=== PATIENT | female | born 1950 | race Caucasian/White ===

== ENCOUNTER 2021-05-01 14:33 | Outpatient (CLI) | payer MEDICARE, OTHER | END 2021-05-01 14:34 | disposition critical access hospital (66) | LOC: EMS 14:33 | DX: Z04.3 Encounter for examination and observation following other accident (principal); R25.2 Cramp and spasm | CPT/HCPCS: A0425; A0427 ==

== ENCOUNTER 2021-05-01 15:01 | Emergency (ER) | payer MEDICARE, OTHER ==
[2021-05-01] MEDS: MORPHINE 2 MG/ML CARPUJECT IM STA (15:40)
--- NOTE | 2021-05-01 15:40 | ED Physician Documentation ---
History of Present Illness - Stated complaint Stated Complaint: GLF - Chief complaint Chief Complaint: Trauma Ext - History obtained from History obtained from: Patient, EMS - History of Present Illness Timing: Today Pain level max: 8 Pain level now: 6 - Additonal information Additional information: Patient is a 70-year-old female who states that she was walking down a driveway today when she slipped in the mud. She feels like her knee went one way and her body went the other way. Pain with movements. Better with rest. 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 She was given morphine by EMS. Pain currently improved. No neck or back pain. No head injury. No loss of consciousness. Review of Systems Ten Systems: 10 systems reviewed and negative Constitutional: denies: Fever, Chills Ears: denies: Ear pain Nose: denies: Rhinorrhea / runny nose, Congestion Respiratory: denies: Cough GI: denies: Nausea, Vomiting, Diarrhea Skin: denies: Rash Musculoskeletal: denies: Neck pain, Extremity pain Neurologic: denies: Headache PD PAST MEDICAL HISTORY - Past Medical History Past Medical History: Yes Psych: Depression - Past Surgical History Past Surgical History: Yes Ortho: Knee replacement - Allergies Allergies/Adverse Reactions: Allergies Allergy/AdvReac Type Severity Reaction Status Date / Time No Known Drug Allergies Allergy Verified 05/01/21 15:13 PD ED PE NORMAL - Vitals Vital signs reviewed: Yes - General General: Alert and oriented X 3, No acute distress - HEENT HEENT: Moist mucous membranes - Neck Neck: Supple, no meningeal sign - Cardiac Cardiac: RRR - Respiratory Respiratory: No respiratory distress, Clear bilaterally - Abdomen Abdomen: Soft, Non tender, Non distended - Derm Derm: Warm and dry - Extremities Extremities: Other (TTP over the L knee, limited exam and ROM 2/2 pain. NVI.) - Neuro Neuro: Alert and oriented X 3 - Psych Psych: Normal mood, Normal affect Results - Vitals Vitals: Vital Signs - 24 hr 05/01/21 05/01/21 05/01/21 15:07 17:12 19:00 Temperature 36.4 C L 36.5 C Heart Rate 80 90 89 Respiratory 18 18 16 Rate Blood Pressure 154/83 H 113/79 114/75 O2 Saturation 100 96 96 Oxygen O2 Source Room air - Labs Labs: Laboratory Tests 05/01/21 05/01/2105/01/21 16:40 17:35 17:35 WBC 11.8 H RBC 5.24 Hgb 15.7 Hct 47.4 H MCV 90.5 MCH 30.0 MCHC 33.1 RDW 12.6 Plt Count 278 MPV 10.1 Neut # (Auto) 10.1 H Lymph # (Auto) 1.2 L Baker # (Auto) 0.4 Eos # (Auto) 0.0 Baso # (Auto) 0.1 Absolute Nucleated RBC 0.00 Nucleated RBC % 0.0 PT 11.5 INR 1.0 APTT 29.1 Sodium Potassium Chloride Carbon Dioxide Anion Gap BUN Creatinine Estimated GFR (MDRD) Glucose Calcium Total Bilirubin AST ALT Alkaline Phosphatase Total Protein Albumin Globulin Albumin/Globulin Ratio Nasal Adenovirus (PCR) NOT DETECTED Nasal B. parapertussis DNA (PCR) NOT DETECTED Nasal Coronavir 229E PCR NOT DETECTED Nasal Coronavir HKU1 PCR NOT DETECTED Nasal Coronavir NL63 PCR NOT DETECTED Nasal Coronavir OC43 PCR NOT DETECTED Nasal Enterovir/Rhinovir PCR NOT DETECTED Nasal Influenza B PCR NOT DETECTED Nasal Influenza A PCR NOT DETECTED Nasal Parainfluen 1 PCR NOT DETECTED Nasal Parainfluen 2 PCR NOT DETECTED Nasal Parainfluen 3 PCR NOT DETECTED Nasal Parainfluen 4 PCR NOT DETECTED Nasal RSV (PCR) NOT DETECTED Nasal B.pertussis DNA PCR NOT DETECTED Nasal C.pneumoniae (PCR) NOT DETECTED Krishna Human Metapneumo PCR NOT DETECTED Nasal M.pneumoniae (PCR) NOT DETECTED Nasal SARS-CoV-2 (PCR) NOT DETECTED 05/01/21 17:35 WBC RBC Hgb Hct MCV MCH MCHC RDW Plt Count MPV Neut # (Auto) Lymph # (Auto) Baker # (Auto) Eos # (Auto) Baso # (Auto) Absolute Nucleated RBC Nucleated RBC % PT INR APTT Sodium 136 Potassium 4.3 Chloride 102 Carbon Dioxide 22 Anion Gap 12.0 BUN 23 H Creatinine 0.6 Estimated GFR (MDRD) 99 Glucose 100 Calcium 9.2 Total Bilirubin 0.5 AST 23 ALT 22 Alkaline Phosphatase 124 H Total Protein 7.1 Albumin 3.9 Globulin 3.2 Albumin/Globulin Ratio 1.2 Nasal Adenovirus (PCR) Nasal B. parapertussis DNA (PCR) Nasal Coronavir 229E PCR Nasal Coronavir HKU1 PCR Nasal Coronavir NL63 PCR Nasal Coronavir OC43 PCR Nasal Enterovir/Rhinovir PCR Nasal Influenza B PCR Nasal Influenza A PCR Nasal Parainfluen 1 PCR Nasal Parainfluen 2 PCR Nasal Parainfluen 3 PCR Nasal Parainfluen 4 PCR Nasal RSV (PCR) Nasal B.pertussis DNA PCR Nasal C.pneumoniae (PCR) Krishna Human Metapneumo PCR Nasal M.pneumoniae (PCR) Nasal SARS-CoV-2 (PCR) - Rads (name of study) L knee xray Radiology: Final report received, EMP read contemporaneously, See rad report (IMPRESSION: Comminuted displaced fracture of the distal femoral metaphysis, just above the level of the knee arthroplasty. ) Procedures - Splint (location) L leg Splint applied by: Physician, Nurse, Tech Type of splint: Fiberglass, Long leg, Posterior Other: Patient tolerated well, No complications, Neurovascular intact PD MEDICAL DECISION MAKING - ED course Complexity details: reviewed results, re-evaluated patient, considered differential, d/w patient ED course: 70-year-old female with a periprosthetic fracture of the left distal femur. I discussed the case with Dr. Yadav, orthopedics on-call who feels that this will require subspecialty care. Discussed the case with Dr. Noreen Osorio 183 at the [facility] emergency department who graciously accepts in transfer. The patient was placed on a long-leg posterior fiberglass splint for comfort. Pain medication given. We will have the patient transferred via [facility]. COBRA forms completed. This document was made in part using voice recognition software. While efforts are made to proofread this document, sound alike and grammatical errors may occur. Departure - Departure Disposition: 02 Transfer Acute Care Hosp Clinical Impression: Periprosthetic fracture around internal prosthetic knee joint Femoral distal fracture Qualifiers: Encounter type: initial encounter Fracture type: closed Fracture morphology: unspecified fracture morphology Laterality: left Qualified Code(s): S72.402A - Unspecified fracture of lower end of left femur, initial encounter for closed fracture Condition: Stable Discharge Date/Time: 05/01/21 19:02
--- NOTE | 2021-05-01 16:47 | XRAY Report ---
PROCEDURE: Knee 2 View LT INDICATIONS: L knee pain s/p fall, h/o TKR TECHNIQUE: 2 views of the left knee(s) were acquired. COMPARISON: None. FINDINGS: Bones: Post surgical changes are seen from total knee arthroplasty. Just superior to the level of the femoral arthroplasty, there is a comminuted displaced fracture of the distal femoral metaphysis. The distal shaft fragment is posteriorly displaced by approximately 2.3 cm and medially displaced by lauro roximately 2.9 cm with mild overriding of fracture fragments and comminuted fracture fragments within the fracture line. Soft tissues: Soft tissue edema is seen surrounding the knee. IMPRESSION: Comminuted displaced fracture of the distal femoral metaphysis, just above the level of the knee arthroplasty. Reviewed by: Wayne Chong MD on 05/01/2021 4:46 PM PST Approved by: Wayne Chong MD on 05/01/2021 4:46 PM PST Station ID: [id number]
[2021-05-01 17:36] LABS: BASOPHILS # (AUTO) 0.1 10^3/uL (0.0-0.1); BASOPHILS % (AUTO) 0.5 %; HCT - HEMATOCRIT 47.4 % (37.0-47.0); HGB - HEMOGLOBIN 15.7 g/dL (12.0-16.0); LYMPHOCYTES # (AUTO) 1.2 10^3/uL (1.5-3.5); MEAN CORPUSCULAR HGB CONC 33.1 g/dL (32.0-36.0); MEAN CORPUSCULAR VOLUME 90.5 fL (81.0-99.0); MEAN PLATELET VOLUME 10.1 fL (7.9-10.8); MONOCYTES # (AUTO) 0.4 10^3/uL (0.0-1.0); MONOCYTES % (AUTO) 3.7 %; NEUTROPHILS # (AUTO) 10.1 10^3/uL (1.5-6.6); NEUTROPHILS % (AUTO) 85.5 %; PLT - PLATELET COUNT 278 10^3/uL (130-450); RED BLOOD COUNT 5.24 10^6/uL (4.20-5.40); RED CELL DISTRIBUTION WIDTH 12.6 % (12.0-15.0); WHITE BLOOD COUNT 11.8 x10^3/uL (4.8-10.8)
[2021-05-01 17:43] LABS: PT - PROTHROMBIN TIME 11.5 secs (9.9-12.6)
[2021-05-01 17:50] LABS: B. PARAPERTUSSIS- RESP PCR PAN NOT DETECTED; B. PERTUSSIS- RESP PCR PANEL NOT DETECTED; C. PNEUMONIAE- RESP PCR PANEL NOT DETECTED; CORONAVIRUS 229E-RESP PCR NOT DETECTED; CORONAVIRUS HKU1-RESP PCR NOT DETECTED; CORONAVIRUS NL63-RESP PCR NOT DETECTED; CORONAVIRUS OC43-RESP PCR NOT DETECTED; HUMAN METAPNEUMOVIRUS NOT DETECTED; INFLUENZA A- RESP PCR PANEL NOT DETECTED; INFLUENZA B - RESP PCR PANEL NOT DETECTED; M. PNEUMONIAE- RESP PCR PANEL NOT DETECTED; PARAINFLUENZA VIRUS 1 NOT DETECTED; PARAINFLUENZA VIRUS 2 NOT DETECTED; PARAINFLUENZA VIRUS 3 NOT DETECTED; PARAINFLUENZA VIRUS 4 NOT DETECTED; RHINOVIRUS/ENTEROVIRUS NOT DETECTED; RSV- RESP PCR PANEL NOT DETECTED; SARS-CoV-2 -RESP PCR PANEL NOT DETECTED
[2021-05-01 17:51] LABS: PARTIAL THROMBOPLASTIN TIME 29.1 secs (24.9-33.3)
[2021-05-01 17:58] LABS: ALBUMIN 3.9 g/dL (3.2-5.5); ALBUMIN/GLOBULIN RATIO 1.2 (1.0-2.2); BILIRUBIN,TOTAL 0.5 mg/dL (0.2-1.0); CALCIUM 9.2 mg/dL (8.5-10.3); CREATININE 0.6 mg/dL (0.4-1.0); POTASSIUM 4.3 mmol/L (3.5-5.0); TOTAL PROTEIN 7.1 g/dL (6.7-8.2)
[2021-05-01] MEDS: HYDROmorphone 1 MG/ML CARPUJECT IVP STA (18:12)
[2021-05-01 19:01] VITALS: BP 114/75
== END 2021-05-01 19:02 | disposition short-term general hospital (02) ==
LOC: ED 15:01
DX: S72.492A Other fracture of lower end of left femur, initial encounter for closed fracture (principal); M97.12XA Periprosthetic fracture around internal prosthetic left knee joint, initial encounter; W01.0XXA Fall on same level from slipping, tripping and stumbling without subsequent striking against object, initial encounter; Y93.01 Activity, walking, marching and hiking; Y92.007 Garden or yard of unspecified non-institutional (private) residence as the place of occurrence of the external cause; Z20.822 Contact with and (suspected) exposure to COVID-19
CPT/HCPCS: 29505; 36415; 73560; 80053; 85025; 85610; 85730; 87631; 96372; 96374; 99284; 99285; J1170; 0202U